=== PATIENT | female | born 1960 | race Caucasian/White ===

== ENCOUNTER 2020-04-29 14:56 | Outpatient (REF) | payer BC, SELFPAY | END 2020-04-29 14:57 | disposition home or self-care (01) | LOC: HO.BBR 14:56 | PROVIDERS: PCP Family Medicine; Visit Provider Internal Medicine Hematology & Oncology | DX: Z13.89 Encounter for screening for other disorder (principal) ==

== ENCOUNTER 2020-08-20 14:47 | Outpatient (REF) | payer BC, SELFPAY | END 2020-08-20 14:48 | disposition home or self-care (01) | LOC: HO.BBR 14:47 | PROVIDERS: Visit Provider Internal Medicine Hematology & Oncology | DX: Z13.89 Encounter for screening for other disorder (principal) ==

== ENCOUNTER 2020-11-19 15:04 | Outpatient (REF) | payer BC, SELFPAY | END 2020-11-19 15:05 | disposition home or self-care (01) | LOC: HO.BBR 15:04 | PROVIDERS: Visit Provider Internal Medicine Hematology & Oncology | DX: Z13.89 Encounter for screening for other disorder (principal) ==

== ENCOUNTER 2023-04-19 09:59 | Outpatient (REF) | payer OTHER, SELFPAY | END 2023-04-19 10:00 | disposition home or self-care (01) | LOC: HO.BBR 09:59 | PROVIDERS: Visit Provider Internal Medicine Hematology | DX: Z13.89 Encounter for screening for other disorder (principal) ==

== ENCOUNTER 2023-05-19 10:04 | Outpatient (REF) | payer OTHER, SELFPAY | END 2023-05-19 10:05 | disposition home or self-care (01) | LOC: HO.BBR 10:04 | PROVIDERS: PCP Family Medicine; Visit Provider Internal Medicine Hematology | DX: Z13.89 Encounter for screening for other disorder (principal) ==

== ENCOUNTER 2023-05-26 12:31 | Outpatient (REF) | payer OTHER, SELFPAY | END 2023-05-26 12:32 | disposition home or self-care (01) | LOC: HO.BBR 12:31 | PROVIDERS: PCP Family Medicine; Visit Provider Internal Medicine Hematology | DX: Z13.89 Encounter for screening for other disorder (principal) ==

== ENCOUNTER 2023-06-02 10:02 | Outpatient (REF) | payer OTHER, SELFPAY | END 2023-06-02 10:03 | disposition home or self-care (01) | LOC: HO.BBR 10:02 | PROVIDERS: Visit Provider Internal Medicine Hematology | DX: Z13.89 Encounter for screening for other disorder (principal) ==

== ENCOUNTER 2023-06-09 12:10 | Outpatient (REF) | payer OTHER, SELFPAY | END 2023-06-09 12:11 | disposition home or self-care (01) | LOC: HO.BBR 12:10 | PROVIDERS: PCP Family Medicine; Visit Provider Internal Medicine Hematology | DX: Z13.89 Encounter for screening for other disorder (principal) ==

== ENCOUNTER 2023-06-16 14:00 | Outpatient (REF) | payer OTHER, SELFPAY | END 2023-06-16 14:01 | disposition home or self-care (01) | LOC: HO.BBR 14:00 | PROVIDERS: PCP Family Medicine; Visit Provider Internal Medicine Hematology | DX: Z13.89 Encounter for screening for other disorder (principal) ==

== ENCOUNTER 2023-06-22 12:59 | Outpatient (REF) | payer OTHER, SELFPAY | END 2023-06-22 13:00 | disposition home or self-care (01) | LOC: HO.BBR 12:59 | PROVIDERS: PCP Family Medicine; Visit Provider Internal Medicine Hematology | DX: Z13.89 Encounter for screening for other disorder (principal) ==

== ENCOUNTER 2023-07-28 13:54 | Outpatient (REF) | payer OTHER, SELFPAY | END 2023-07-28 13:55 | disposition home or self-care (01) | LOC: HO.BBR 13:54 | PROVIDERS: PCP Family Medicine; Visit Provider Internal Medicine Hematology | DX: Z13.89 Encounter for screening for other disorder (principal) ==